=== PATIENT | female | born 1980 | race Two or more races ===

== ENCOUNTER 2017-08-09 10:33 | Emergency (ER) | payer OTHER ==
[~2017-08-09] VITALS: Ht 154.9 cm; Wt 68.0 kg
[2017-08-09 10:45] VITALS: BP 112/77
--- NOTE | 2017-08-09 11:17 | Emergency Room Report ---
History of Present Illness General Chief Complaint: Female Urogenital Problems Source: Patient Present Illness HPI This patient states that she believes she has a tampon retained in her vagina. She states that she figured it out when she was on the toilet and thought she had a tampon and today. She thought maybe she had removed it. However, she states that she started feeling some pain in her vagina. She states she recalled that she had put in a tampon the day before. She states she also noted an odor. She states she tried to get the tampon out and she can feel it but is unable to remove it. She states that she believes she did this when she put 2 tampons and. She states she got a second tampon out but believes there is still one from the day prior. She has some mild pain. She denies fever or chills. She denies nausea or vomiting. She does have a foul odor. She denies rash. She has no other symptoms. Allergies: Coded Allergies: No Known Allergies (Unverified , 08/09/17) Patient History Past Medical History: none Social History: Denies: smoking, alcohol use, drug use Now: No Reviewed Nursing Documentation: PMH: Agreed; PSxH: Agreed Nursing Documentation-PMH Past Medical History: No Stated History Review of Systems All Other Systems: negative except mentioned in HPI Physical Exam Vital Signs Date Time Temp Pulse Resp B/P (MAP) Pulse Ox O2 Delivery O2 Flow Rate FiO2 08/09/17 10:37 98.2 70 18 112/77 96 Room Air 98.2 Sp02 EP Interpretation: reviewed, normal General Appearance: no apparent distress, alert, GCS 15, non-toxic Head: normocephalic, atraumatic Eyes: bilateral eye normal inspection, bilateral eye PERRL ENT: hearing grossly normal, normal pharynx, no angioedema, normal voice Neck: full range of motion, supple/symm/no masses Respiratory: no respiratory distress, no retraction, no accessory muscle use, speaking full sentences Gastrointestinal: normal bowel sounds, non tender, soft, non-distended, no guarding, no rebound Rectal: deferred Genitourinary: cervix normal, ext genitalia/vag normal, other - Tampon lodged in the proximal vaginal canal. +foul odor. Musculoskeletal: gait/station normal, normal range of motion Neurologic: alert, oriented x3, responsive, motor strength/tone normal, sensory intact, speech normal Psychiatric: judgement/insight normal, memory normal, mood/affect normal, no suicidal/homicidal ideation Skin: normal color, no rash, warm/dry, well hydrated Medical Decision Making Diagnostic Impression: Primary Impression: Foreign body in vagina ER Course This patient had a tampon lodged in her proximal vagina. I was able to remove it without complication or incident. There was a foul odor associated with the tampon itself. The vaginal canal was reassessed with a speculum after the tampon was removed and there was no other foreign bodies. Cervix is normal. There are no physical exam findings concerning for infection. I did educate the patient on the signs and symptoms of toxic shock syndrome. At this time there is no evidence of that. The patient is given return precautions and follow-up instructions. Last Vital Signs Date Time Temp Pulse Resp B/P (MAP) Pulse Ox O2 Delivery O2 Flow Rate FiO2 08/09/17 10:45 98.2 76 18 112/77 99 Room Air 98.2 Status: improved Disposition: HOME, SELF-CARE Condition: Improved Scripts No Active Prescriptions or Reported Meds Referrals: NOT CHOSEN OKSANA/,REFERRING (PCP) ALLISON POTTS D.O. Aug 09, 2017 11:17
[2017-08-09 11:22] VITALS: BP 112/77
== END 2017-08-09 11:29 | disposition home or self-care (01) ==
LOC: EMR 10:59
DX: T19.2XXA Foreign body in vulva and vagina, initial encounter (principal); X58.XXXA Exposure to other specified factors, initial encounter; Y92.9 Unspecified place or not applicable
CPT/HCPCS: 99283

== ENCOUNTER 2017-08-27 13:08 | Emergency (ER) | payer OTHER ==
[~2017-08-27] VITALS: Ht 154.9 cm; Wt 72.6 kg
[2017-08-27] MEDS ORDERED: NKM (13:17)
[2017-08-27 13:20] VITALS: BP 124/78
--- NOTE | 2017-08-27 13:39 | Emergency Room Report ---
History of Present Illness General Chief Complaint: Nausea Source: Patient Present Illness HPI Patient presents with overwhelming anxiety and stressed with palpitations and chest pressure. This began last night. She also feels nauseated. No vomiting. She has been off of anxiety and depression medication for 2 years. At that time Lexapro helped the most - she did not like Zoloft or Paxil. She had taken ativan which also helped. She prefers not to take medication. 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 She denies domestic abuse, drugs, alcohol intoxication. Stools occasionally loose, but usually normal. She denies SI or HI. Last night she took a cold remedy which seemed to make things worse. No hives or throat swelling. She was unable to get an appointment with an MD for 3 weeks. No fevers, URI sy, cough, wheezing, headache, rashes, dysuria, change in vision , leg swelling or pain. She is not on control. Her last period was abnormal and heavier. It was 3 weeks ago. She doesn't believe she is . Allergies: Coded Allergies: No Known Allergies (Unverified , 08/09/17) Patient History Past Medical History: see triage record Social History: Reports: alcohol use; Denies: smoking Social History Narrative manages apartments Now: No Reviewed Nursing Documentation: PMH: Agreed; PSxH: Agreed Nursing Documentation-PMH Past Medical History: No Stated History Review of Systems All Other Systems: negative except mentioned in HPI Physical Exam Vital Signs Date Time Temp Pulse Resp B/P (MAP) Pulse Ox O2 Delivery O2 Flow Rate FiO2 08/27/17 13:11 98.2 72 18 137/81 95 Room Air 98.2 Sp02 EP Interpretation: reviewed, normal General Appearance: well appearing, no apparent distress, GCS 15 Head: normocephalic Eyes: bilateral eye normal inspection, bilateral eye PERRL ENT: moist mucus membranes Neck: supple Respiratory: lungs clear, normal breath sounds Cardiovascular #1: regular rate, rhythm Cardiovascular #2: 2+ radial (R) Gastrointestinal: normal inspection, normal bowel sounds, non tender, no mass, non-distended Musculoskeletal: back normal, gait/station normal, normal range of motion Neurologic: alert, oriented x3, grossly normal Psychiatric: no suicidal/homicidal ideation, anxious Skin: normal inspection, warm/dry Medical Decision Making Diagnostic Impression: Primary Impression: Situational stress Additional Impressions: Panic attack Adverse reaction to common cold remedy Qualified Codes: T48.5X5A - Adverse effect of other wzbx-[id number]-eyjv drugs, initial encounter ER Course Patient presents with anxiety and dyspnea. DDX: anxiety, hyperventilation, electrolyte abnormality, , thyroid dysfunction, diabetes, PE, adverse reaction to medication amongst others. VS and exam against PE. Evaluation with EKG, CXR and labs. Treatment with IV hydration and cardiac observation. EKG without injury. CXR clear. Labs with normal CBC, CMP except for min elevation of AST and ALT. TSH normal. Patient improved with observation. Discussed causes and treatment of stress and need to follow up with her MDs. Patient stable for outpatient observation and treatment. Laboratory Tests Test 08/27/17 13:50 White Blood Count 8.4 K/UL (4.8-10.8) Red Blood Count 4.99 M/UL (4.20-5.40) Hemoglobin 15.4 G/DL (12.0-16.0) Hematocrit 46.9 % (37.0-47.0) Mean Corpuscular Volume 94 FL (80-99) Mean Corpuscular Hemoglobin 30.8 PG (27.0-31.0) Mean Corpuscular Hemoglobin Concent 32.8 G/DL (32.0-36.0) Red Cell Distribution Width 10.8 % (11.6-14.8) L Platelet Count 214 K/UL (150-450) Mean Platelet Volume 9.4 FL (6.5-10.1) Neutrophils (%) (Auto) 81.3 % (45.0-75.0) H Lymphocytes (%) (Auto) 11.1 % (20.0-45.0) L Monocytes (%) (Auto) 5.8 % (1.0-10.0) Eosinophils (%) (Auto) 0.4 % (0.0-3.0) Basophils (%) (Auto) 1.4 % (0.0-2.0) Urine HCG, Qualitative Negative (NEGATIVE) Sodium Level 138 MMOL/L (136-145) Potassium Level 3.7 MMOL/L (3.5-5.1) Chloride Level 103 MMOL/L (98-107) Carbon Dioxide Level 24 MMOL/L (21-32) Anion Gap 11 mmol/L (5-15) Blood Urea Nitrogen 7 mg/dL (7-18) Creatinine 0.8 MG/DL (0.55-1.30) Estimate Glomerular Filtration Rate > 60 mL/min (>60) Glucose Level 104 MG/DL (74-106) Calcium Level 8.6 MG/DL (8.5-10.1) Total Bilirubin 0.6 MG/DL (0.2-1.0) Aspartate Amino Transferase (AST) 72 U/L (15-37) H Alanine Aminotransferase (ALT) 100 U/L (12-78) H Alkaline Phosphatase 80 U/L (46-116) Total Creatine Kinase 30 U/L (26-308) Total Protein 7.9 G/DL (6.4-8.2) Albumin 3.9 G/DL (3.4-5.0) Globulin 4.0 g/dL Albumin/Globulin Ratio 1.0 (1.0-2.7) Thyroid Stimulating Hormone (TSH) 0.537 uiU/mL (0.358-3.740) Salicylates Level 1.3 ug/mL (2.8-20) L Urine Opiates Screen Negative (NEGATIVE) Acetaminophen Level < 2 MCG/ML (10-30) L Urine Barbiturates Screen Negative (NEGATIVE) Phencyclidine (PCP) Screen Negative (NEGATIVE) Urine Amphetamines Screen Negative (NEGATIVE) Urine Benzodiazepines Screen Negative (NEGATIVE) Urine Cocaine Screen Negative (NEGATIVE) Urine Marijuana (THC) Screen Negative (NEGATIVE) Serum Alcohol < 3 mg/dL EKG Diagnostic Results Rate: normal Rhythm: NSR ST Segments: no acute changes Rhythm Strip Diag. Results EP Interpretation: yes Rhythm: NSR, no PVC's, no ectopy Chest X-Ray Diagnostic Results Chest X-Ray Diagnostic Results : Chest X-Ray Ordered: Yes # of Views/Limited/Complete: 1 View Indication: Shortness of Breath EP Interpretation: Yes Interpretation: no consolidation, no effusion, no pneumothorax Impression: No acute disease Electronically Signed by: Richard De Jesus MD Last Vital Signs Date Time Temp Pulse Resp B/P (MAP) Pulse Ox O2 Delivery O2 Flow Rate FiO2 08/27/17 16:37 98.2 74 13 131/73 100 Room Air 98.2 Status: improved Disposition: HOME, SELF-CARE Condition: Improved Scripts Lorazepam* (ATIVAN*) 0.5 Mg Tablet 0.5 MG ORAL THREE TIMES A DAY, #10 TAB Prov: Richard De Jesus M.D. 08/27/17 Richard De Jesus M.D. Aug 27, 2017 13:39
[2017-08-27 14:16] LABS: BASOPHILS % (AUTO) 1.4 % (0.0-2.0); EOSINOPHILS % (AUTO) 0.4 % (0.0-3.0); HEMATOCRIT 46.9 % (37.0-47.0); HEMOGLOBIN 15.4 G/DL (12.0-16.0); LYMPHOCYTES % (AUTO) 11.1 % (20.0-45.0); MEAN CORPUSCULAR VOLUME 94 FL (80-99); MONOCYTES % (AUTO) 5.8 % (1.0-10.0); NEUTROPHILS % (AUTO) 81.3 % (45.0-75.0); PLATELET COUNT 214 K/UL (150-450); RED BLOOD COUNT 4.99 M/UL (4.20-5.40); RED CELL DISTRIBUTION WIDTH 10.8 % (11.6-14.8); WHITE BLOOD COUNT 8.4 K/UL (4.8-10.8)
[2017-08-27 14:34] LABS: ANION GAP 11 mmol/L (5-15); BLOOD UREA NITROGEN 7 mg/dL (7-18); CALCIUM 8.6 MG/DL (8.5-10.1); CARBON DIOXIDE 24 MMOL/L (21-32); CHLORIDE 103 MMOL/L (98-107); CREATININE 0.8 MG/DL (0.55-1.30); POTASSIUM 3.7 MMOL/L (3.5-5.1); SODIUM 138 MMOL/L (136-145)
[2017-08-27 14:48] LABS: ALANINE AMINOTRANSFERASE 100 U/L (12-78); ALBUMIN 3.9 G/DL (3.4-5.0); ALKALINE PHOSPHATASE 80 U/L (46-116); ASPARTATE AMINO TRANSFERASE 72 U/L (15-37); BILIRUBIN,TOTAL 0.6 MG/DL (0.2-1.0); CREATINE KINASE 30 U/L (26-308)
[2017-08-27 15:07] VITALS: BP 131/73
[2017-08-27] MEDS ORDERED: ATIVAN0.5 MG ORAL (16:21)
[2017-08-27 16:37] VITALS: BP 131/73
--- NOTE | 2017-08-27 17:10 | Diagnostic Imaging Report ---
Indication: Dyspnea Technique: One view of the chest Comparison: none Findings: Lungs and pleural spaces are clear. Heart size is normal Impression: No acute process
--- NOTE | 2017-08-28 15:06 | Cardiology Report ---
APPROVED REPORT EKG Measurement Heart [id number] Normal sinus rhythm Normal ECG
== END 2017-08-27 16:56 | disposition home or self-care (01) ==
LOC: EMR 13:53
DX: F43.9 Reaction to severe stress, unspecified (principal); F41.0 Panic disorder [episodic paroxysmal anxiety]; T50.995A Adverse effect of other drugs, medicaments and biological substances, initial encounter
CPT/HCPCS: 36415; 71045; 80053; 80307; 81025; 82550; 84443; 85025; 93005; 96360; 99283; G0480; 80329

== ENCOUNTER 2017-09-23 17:10 | Emergency (ER) | payer OTHER ==
[~2017-09-23] VITALS: Ht 154.9 cm; Wt 76.2 kg
[~2017-09-23 17:10] MED LIST: ATIVAN0.5 MG ORAL; NKM
[2017-09-23] MEDS ORDERED: Bacitracin Oint UD TOPIC ONE (17:30)
[2017-09-23 17:33] VITALS: BP 123/73
--- NOTE | 2017-09-23 17:34 | Emergency Room Report ---
History of Present Illness General Chief Complaint: Skin Rash/Abscess Source: Patient Present Illness HPI 36-year-old female presents to the emergency department complaining of several itchy bug bites to the right upper extremity as well as 2 on the left lower extremity 2 days. Patient reports that she noticed the bites after spending the night at a friend's house. Patient denies fevers and chills. Denies pain. Pt. denies fevers, chills or swollen tender lymph nodes. Denies lesions/rashes elsewhere on the body. Denies new medications or body washes or creams. Denies swelling of the lips, tongue , throat or airway. Denies wheezing, or shortness of breath. Denies recent travel, recent illness or ill contacts. denies blisters, oral lesions, or sloughing of the skin Allergies: Coded Allergies: No Known Allergies (Unverified , 08/09/17) Patient History Past Medical History: see triage record Past Surgical History: none Pertinent Family History: none Last Menstrual Period: 08/30/17 Now: No Reviewed Nursing Documentation: PMH: Agreed; PSxH: Agreed Nursing Documentation-PMH Past Medical History: No Stated History Review of Systems All Other Systems: negative except mentioned in HPI Physical Exam Vital Signs Date Time Temp Pulse Resp B/P (MAP) Pulse Ox O2 Delivery O2 Flow Rate FiO2 09/23/17 17:23 98.0 66 18 123/73 98 Room Air 98.1 Sp02 EP Interpretation: reviewed, normal General Appearance: no apparent distress, alert, GCS 15, non-toxic Head: normocephalic, atraumatic Eyes: bilateral eye normal inspection, bilateral eye PERRL ENT: hearing grossly normal, normal voice, other - no swelling of the lips or tongue Neck: full range of motion Respiratory: lungs clear, normal breath sounds, no respiratory distress, no wheezing, speaking full sentences Cardiovascular #1: regular rate, rhythm, no edema Musculoskeletal: back normal, gait/station normal, normal range of motion, non- tender Neurologic: alert, oriented x3, responsive, motor strength/tone normal, sensory intact, normal gait, speech normal, grossly normal Psychiatric: judgement/insight normal Skin: normal color, warm/dry, well hydrated, other - multiple insect bites, not infected ( 3 RUE, 2 LLE) no blisters or vesicles. Lymphatic: no adenopathy Medical Decision Making PA Attestation Dr Hicks is my supervising Physician whom patient management has been discussed with. Diagnostic Impression: Primary Impression: Insect bite Qualified Codes: W57.XXXA - Bitten or stung by nonvenomous insect and other nonvenomous arthropods, initial encounter ER Course 36-year-old female presents to the emergency department complaining of several itchy bug bites to the right upper extremity as well as 2 on the left lower extremity 2 days. Patient reports that she noticed the bites after spending the night at a friend's house. Patient denies fevers and chills. Denies pain. Pt. denies fevers, chills or swollen tender lymph nodes. Denies lesions/rashes elsewhere on the body. Denies new medications or body washes or creams. Denies swelling of the lips, tongue , throat or airway. Denies wheezing, or shortness of breath. Denies recent travel, recent illness or ill contacts. denies blisters, oral lesions, or sloughing of the skin Ddx considered but are not limited to cellulitis, scabies, insect bites, tic bites, spider bites, contact dermatitis, Drug reaction, allergic reaction, fungal infection, lice. Vital signs: are WNL, pt. is afebrile H&PE are most consistent with multiple insect bites, not infected ( 3 RUE, 2 LLE ) no blisters or vesicles. No evidence of impending airway compromise or anaphylaxis. ORDERS: none required at this time, the diagnosis is clinical ED INTERVENTIONS: None required at this time. DISCHARGE: At this time pt. is stable for d/c to home. Will provide printed patient care instructions, and any necessary prescriptions. Care plan and follow up instructions have been discussed with the patient prior to discharge. Last Vital Signs Date Time Temp Pulse Resp B/P (MAP) Pulse Ox O2 Delivery O2 Flow Rate FiO2 09/23/17 17:23 98.0 66 18 123/73 98 Room Air 98.1 Disposition: HOME, SELF-CARE Condition: Stable Scripts Hydrocortisone (Hydrocortisone Cream 2.5%) Y Cream.appl 1 APPLIC TP BID, #28.3 GM Prov: Kira Rosen 09/23/17 Bacitracin/Polymyxin B Sulfate (BACITRACIN-POLYMYXIN OINTMENT) 28.35 Gm Oint...g. 1 APPLIC TP BID, #28.3 GM Prov: Kira Rosen 09/23/17 Hydroxyzine Pamoate (VISTARIL) 25 Mg Capsule 25 MG PO QHS PRN for Itching, #30 CAP Prov: Kira Rosen 09/23/17 Patient Instructions: Insect Bite, [id number] Additional Instructions: Take medications as directed. Follow up with a Primary Care Provider in 3-5 days, even if your symptoms have resolved. --Please review list of primary care clinics, if you do not already have a primary care provider Return sooner to ED if new symptoms occur, or current symptoms become worse. Do not drink alcohol, drive, or operate heavy machinery while taking Vistaril/ Hydroxyzine as this may cause drowsiness. - Please note that this Emergency Department Report was dictated using [employer] under[employer] technology software, occasionally this can lead to erroneous entry secondary to interpretation by the dictation equipment. Kira Rosen Sep 23, 2017 17:34
[2017-09-23] MEDS ORDERED: HYDROCORTISONE30 G2 TP (17:36)
[2017-09-23] MEDS ORDERED: VISTARIL25 M1 PO (17:36)
[2017-09-23] MEDS ORDERED: BACITRACIN-P28.35 GM TP (17:36)
[2017-09-23 17:47] VITALS: BP 123/73
== END 2017-09-23 18:10 | disposition home or self-care (01) ==
LOC: EMR 17:45
DX: S40.862A Insect bite (nonvenomous) of left upper arm, initial encounter (principal); S40.861A Insect bite (nonvenomous) of right upper arm, initial encounter; S80.862A Insect bite (nonvenomous), left lower leg, initial encounter; S80.861A Insect bite (nonvenomous), right lower leg, initial encounter; W57.XXXA Bitten or stung by nonvenomous insect and other nonvenomous arthropods, initial encounter; Y92.9 Unspecified place or not applicable
CPT/HCPCS: 99283

== ENCOUNTER 2017-12-06 23:17 | Emergency (ER) | payer OTHER ==
[~2017-12-06] VITALS: Ht 154.9 cm; Wt 64.4 kg
[~2017-12-06 23:17] MED LIST changes: +BACITRACIN-P28.35 GM TP; +HYDROCORTISONE30 G2 TP; +VISTARIL25 M1 PO
[2017-12-06 23:36] VITALS: BP 120/76
[2017-12-06] MEDS ORDERED: IBUPROFEN600 MG ORAL (23:42)
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
[2017-12-07 00:17] VITALS: BP 121/76
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
== END 2017-12-07 00:18 | disposition home or self-care (01) ==
LOC: EMR 23:42
DX: S09.90XA Unspecified injury of head, initial encounter (principal); S40.012A Contusion of left shoulder, initial encounter; V43.52XA Car driver injured in collision with other type car in traffic accident, initial encounter; Y92.411 Interstate highway as the place of occurrence of the external cause
CPT/HCPCS: 70450; 99284

== ENCOUNTER 2018-01-02 13:24 | Emergency (ER) | payer OTHER ==
[~2018-01-02] VITALS: Ht 154.9 cm; Wt 65.8 kg
[~2018-01-02 13:24] MED LIST changes: +IBUPROFEN600 MG ORAL
[2018-01-02 13:40] VITALS: BP 122/89
[2018-01-02] MEDS ORDERED: Dicyclomine HCl 10mg/5ml oral soln ORAL ONE (14:00)
[2018-01-02] MEDS ORDERED: DICYCLOMINE HCL10 MG PO (14:10)
[2018-01-02] MEDS ORDERED: PRILOSEC OTC20 MG ORAL (14:10)
[2018-01-02 14:24] LABS: APPEARANCE,URINE CLEAR; BILIRUBIN, URINE NEGATIVE (NEGATIVE); COLOR,URINE PALE YELLOW; GLUCOSE, URINE (UA) NEGATIVE (NEGATIVE); KETONES,URINE NEGATIVE (NEGATIVE); LEUKOCYTE ESTERASE ,URINE NEGATIVE (NEGATIVE); NITRITE,URINE NEGATIVE (NEGATIVE); PH,URINE 5 (4.5-8.0); PROTEIN,URINE NEGATIVE (NEGATIVE); UROBILINOGEN,URINE NORMAL MG/DL (0.0-1.0)
[2018-01-02 14:36] VITALS: BP 131/84
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
== END 2018-01-02 14:40 | disposition home or self-care (01) ==
LOC: EMR 13:59
DX: K27.9 Peptic ulcer, site unspecified, unspecified as acute or chronic, without hemorrhage or perforation (principal)
CPT/HCPCS: 81003; 81025; 99283